=== PATIENT | female | born 1995 | race Caucasian/White ===

== ENCOUNTER 2020-01-11 17:22 | Outpatient (CLI) | payer MEDICAID ==
--- NOTE | 2020-01-11 20:28 | RADIOLOGY REPORT (SQ) ---
EXAM DESCRIPTION: CLINICAL HISTORY: 24 years Female BPP COMPARISON: None. TECHNIQUE: Transabdominal duplex imaging performed to evaluate the pelvis. FINDINGS: posture and tone was observed. movement and breathing observed. SARAH 19.8 cm. Cervix measures 3.1 cm. Fundal placenta without abruption. Vertex presentation. heart rate 152 bpm. IMPRESSION: Normal biophysical profile 02/22
== END 2020-01-11 19:39 | disposition home or self-care (01) ==
LOC: LC 17:22
PROVIDERS: ATTEND Obstetrics & Gynecology
DX: O40.3XX0 Polyhydramnios, third trimester, not applicable or unspecified (principal); Z3A.35 35 weeks gestation of pregnancy
CPT/HCPCS: 76815

== ENCOUNTER 2020-01-17 15:30 | Outpatient (CLI) | payer MEDICAID ==
--- NOTE | 2020-01-17 16:22 | Non Stress Test Report ---
Non Stress Test Datetime Report Generated by CPN: 01/17/2020 16:21 DEMOGRAPHIC EGA NST: 35.2 INDICATION Indication for Study (NST) Other: sent from office for repeat NST VITAL SIGNS Temperature - NST: 97.9 Pulse - NST: 82 RESP - NST: 16 NBPSYS NST: 118 NBPDIA NST: 59 MONITORING Monitor Explained: Monitor Explained; Test Explained; Patient Verbalized Understanding Time on Monitor: 01/17/2020 15:42 Time off Monitor: 01/17/2020 16:21 NST Duration: 39 NST INTERVENTIONS NST Interventions: None Physician Notified NST: N Prabhakar CNM BABY A: [id number] BABY A Movement : Present (Annotations: Data stored by N on behalf of user) Contraction Frequency : 0 FHR Baseline : 135 Accelerations : 15X15 Decelerations : None Variability : Moderate 6-25bpm NST Review: Meets Criteria for Reactive NST NST Review and Verified By : Doreen Malik RN NST Results: Reactive NST REPORT Report Trigger: Send Report
== END 2020-01-17 16:23 | disposition home or self-care (01) ==
LOC: LC 15:30
PROVIDERS: ATTEND Obstetrics & Gynecology Gynecology
DX: O24.419 Gestational diabetes mellitus in pregnancy, unspecified control (principal); Z3A.35 35 weeks gestation of pregnancy
CPT/HCPCS: 59025

== ENCOUNTER 2020-01-22 16:08 | Inpatient (IN) | payer MEDICAID ==
[2020-01-22 17:06] LABS: APPEARANCE,URINE SLIGHTLY-CLOUDY; BILIRUBIN,URINE NEGATIVE (NEGATIVE); COLOR,URINE YELLOW; GLUCOSE, URINE NEGATIVE (NEGATIVE); KETONES,URINE NEGATIVE (NEGATIVE); LEUKOCYTE ESTERASE,URINE NEGATIVE (NEGATIVE); NITRITE,URINE NEGATIVE (NEGATIVE); PROTEIN,URINE NEGATIVE (NEGATIVE); URINE SPECIFIC GRAVITY 1.012; UROBILINOGEN,URINE NEGATIVE mg/dL (<2.0)
--- NOTE | 2020-01-22 17:38 | Admission Physical ---
Datetime Report Generated by CPN: 01/22/2020 17:38 CURRENT ADMISSION Chief Complaint: Uterine Contractions Indication for Induction: PROM Admit Impression : , Intrauterine ; No Active Labor; Ruptured Membranes; Induction of Labor Admit Plan: Admit to Unit; Initiate Labor Protocol ALLERGIES Medication Allergies: No Medication Allergies: No Known Allergies (01/22/2020) Latex: No Latex Allergies OBSTETRICAL HISTORY EDC: 02/19/2020 00:00 : 2 Para: 0 Term: 0 : 0 SAB: 0 IAB: 0 Ectopic: 1 Livin Cesareans: 0 VBACs: 0 Multiple Births: 0 Gestational Diabetes: Yes Rh Sensitization: No Incompetent Cervix: No ROSS: No Infertility: No ART Treatment: No Uterine Anomaly: No IUGR: No Hx Previous C/S: No Macrosomia: No Hx Loss/Stillborn: No PIH: No Hx : No Placenta Previa/Abruption: No Depression/PP Depression: No PTL/PROM: Yes Post Hemorrhage: No Current Procedures: Ultrasound Obstetrical History Comments: G1: 2018 ectopic G2: current SEE RECORDS Alcohol: No Marijuana : No Cocaine: No Other Illicit Drugs: No Cigarettes: Never Smoker. [id number] MEDICAL HISTORY Diabetes: No Diabetes Type: Gestational Diabetes Blood Transfusion: No Pulmonary Disease (Asthma, TB): No Breast Disease: No Hypertension: No Lead Sql Developer Surgery: No Heart Disease: No Hosp/Surgery: No Autoimmune Disorder: No Anesthetic Complications: No Kidney Disease: No Abnormal Pap Smear: No Neuro/Epilepsy: No Psychiatric Disorders: Yes Other Medical Diseases: No Hepatitis/Liver Disease: No Significant Family History: No Varicosities/Phlebitis: No Trauma/Violence : No Thyroid Dysfunction: No Medical History Comments: depression, GDM, gestational thrombocytopenia INFECTIOUS HISTORY Gonorrhea: No Genital Herpes: No Chlamydia: No Tuberculosis: No Syphilis: No Hepatitis: No HIV/AIDS Exposure: No Rash or Viral Illness: No HPV: No PHYSICAL EXAM General: Normal HEENT: Normal Neurologic: Normal Thyroid: Normal Heart: Normal Lungs: Normal Breast: Normal Back: Normal Abdomen: Normal Genitourinary Exam: Normal Extremities: Normal DTRs: Normal Pelvic Type: Adequate Vital Signs: Reviewed; Within Normal Limits VAGINAL EXAM Dilatation: 2 Effacement: 50 Station: -2 MEMBRANES Membranes: Ruptured Amniotic Fluid Color: Clear FETUS A EGA: 36.0 Monitoring: External US FHR- Baseline: 150 Variability: Moderate 6-25bpm Accelerations: 15X15 Decelerations: None FHR Category: Category I Estimated Weight (gm): 2900 Presentation: Vertex Admit Comment: Actiprom +. Pt unsure of when she began leaking. A2DM on glyburide 2.5 mg q daily. Will give single dose of ACS and proceed with labor induction. PLANS FOR LABOR AND DELIVERY Labor and Delivery: None Feeding Preference: Formula Benefit of Breast Feed Discussed: Yes Circumcision: Yes INFORMED CONSENT Signature: with User ID: [email or web address]
[2020-01-22] MEDS ORDERED: RINGERS SOLUTION,LACTATED 1,000 ML IV PRN (17:39)
[2020-01-22] MEDS ORDERED: PENICILLIN G POTASSIUM 5,000,000 UNIT in DEXTROSE 5%-WATER 100 ML IV ONE (17:39)
[2020-01-22 17:40] LABS: URINE AMPHETAMINES SCREEN NEGATIVE; URINE BARBITURATES SCREEN NEGATIVE; URINE BENZODIAZEPINES SCREEN NEGATIVE; URINE COCAINE SCREEN NEGATIVE; URINE MARIJUANA (THC) SCREEN NEGATIVE; URINE METHADONE SCREEN NEGATIVE; URINE PHENCYCLIDINE SCREEN NEGATIVE
[2020-01-22] MEDS ORDERED: PENICILLIN G-K 5 MILLION UNIT VIAL ONE (17:40)
[2020-01-22] MEDS ORDERED: BETAMET ACET/BETAMET NA INJ 6 MG/1 ML ONE (17:40)
[2020-01-22] MEDS ORDERED: BETAMET ACET/BETAMET NA INJ 6 MG/1 ML IM ONE (17:41)
[2020-01-22 18:20] LABS: HEMATOCRIT 35.2 % (36.0-47.0); HEMOGLOBIN 12.3 g/dL (12.0-15.5); MEAN CORPUSCULAR HEMOGLOBIN 30.3 pg (27.0-33.4); MEAN CORPUSCULAR VOLUME 87 fl (80-97); PLATELET COUNT 103 10^3/uL (150-450); RED BLOOD COUNT 4.06 10^6/uL (3.72-5.28); RED CELL DISTRIBUTION WIDTH 13.2 % (11.5-14.0); WHITE BLOOD COUNT 8.3 10^3/uL (4.0-10.5)
[2020-01-22 19:59] LABS: CHLAM PCR NOT DETECTED (NOT DETECT)
[2020-01-22] MEDS ORDERED: SERTRALINE HCL 50 MG TABLET PO SCH (20:00)
[2020-01-22] MEDS ORDERED: GLYBURIDE 2.5 MG TABLET PO SCH (20:00)
[2020-01-22] MEDS ORDERED: SERTRALINE HCL 50 MG TABLET ONE ×2 (20:16→22:08)
[2020-01-22] MEDS ORDERED: GLYBURIDE 5 MG TABLET ONE (20:16)
[2020-01-22] MEDS: SERTRALINE HCL 50 MG TABLET PO SCH (22:13)
[2020-01-22] MEDS: PENICILLIN G POTASSIUM 2,500,000 UNIT in DEXTROSE 5%-WATER 50 ML IV SCH (22:13)
[2020-01-23] MEDS ORDERED: DINOPROSTONE 10 MG VAGINAL INSERT.SR PV PRN (00:27)
[2020-01-23] MEDS ORDERED: DINOPROSTONE 10 MG VAGINAL INSERT.SR ONE ×2 (00:33→01:45)
[2020-01-23] MEDS: PENICILLIN G POTASSIUM 2,500,000 UNIT in DEXTROSE 5%-WATER 50 ML IV SCH ×5 (01:47→21:58)
[2020-01-23] MEDS ORDERED: OXYTOCIN/0.9 % SODIUM CHLORIDE 30 UNIT/500 ML RTUINJ IV PRN (08:19)
[2020-01-23 09:23] LABS: ABSOLUTE LYMPHOCYTES (AUTO) 1.3 10^3/uL (0.5-4.7); ABSOLUTE MONOCYTES (AUTO) 0.4 10^3/uL (0.1-1.4); ABSOLUTE NEUT (AUTO) 9.3 10^3/uL (1.7-8.2); BASOPHILS % (AUTO) 0.2 % (0-2); HEMATOCRIT 37.1 % (36.0-47.0); HEMOGLOBIN 12.6 g/dL (12.0-15.5); LYMPHOCYTES % (AUTO) 11.5 % (13-45); MEAN CORPUSCULAR HEMOGLOBIN 29.8 pg (27.0-33.4); MEAN CORPUSCULAR HGB CONC 33.9 g/dL (32.0-36.0); MEAN CORPUSCULAR VOLUME 88 fl (80-97); MONOCYTES % (AUTO) 3.6 % (3-13); PLATELET COUNT 111 10^3/uL (150-450); RED BLOOD COUNT 4.22 10^6/uL (3.72-5.28); RED CELL DISTRIBUTION WIDTH 13.5 % (11.5-14.0); SEGMENTED NEUTROPHILS % (AUTO) 84.7 % (42-78); TOTAL CELLS COUNTED % (AUTO) 100 %
[2020-01-23] MEDS ORDERED: PENICILLIN G-K 5 MILLION UNIT VIAL ONE ×2 (09:23→14:11)
[2020-01-23] MEDS ORDERED: OXYTOCIN 10 UNIT/ML VIAL ONE (09:42)
[2020-01-23] MEDS ORDERED: MISOPROSTOL 0.2 MG TABLET ONE (09:42)
[2020-01-23] MEDS ORDERED: OXYTOCIN/0.9 % SODIUM CHLORIDE 30 UNIT/500 ML RTUINJ ONE (09:42)
[2020-01-23] MEDS ORDERED: LIDOCAINE 1% INJ-PF (10 MG/ML) 30 ML SDV ONE (09:42)
--- NOTE | 2020-01-23 14:06 | PDOC PROGRESS REPORT ---
Subjective Progress Note for:: 01/23/20 Subjective:: Doing well. Resting quietly No f/c Reason For Visit: Physical Exam - Physical Exam Vital Signs: Intake & Output 01/22/20 01/23/20 01/24/20 06:59 06:59 06:59 Weight 119.3 kg General appearance: PRESENT: no acute distress, cooperative Respiratory exam: PRESENT: clear to auscultation mike Cardiovascular exam: PRESENT: RRR, +S1, +S2 GI/Abdominal exam: PRESENT: soft Extremities exam: PRESENT: full ROM. ABSENT: calf tenderness, clubbing, pedal edema Psychiatric exam: PRESENT: appropriate affect, normal mood. ABSENT: homicidal ideation, suicidal ideation Skin exam: PRESENT: dry, intact, warm. ABSENT: cyanosis, rash - Obstetrical Exam External Genitalia: normal Vagina: normal Dilation (cm): 2 Effacement (%): 50 Station: -2 Result Laboratory Results: 01/23/20 09:07 01/22/20 01/22/20 01/22/20 16:45 18:06 18:06 WBC 8.3 RBC 4.06 Hgb 12.3 Hct 35.2 L MCV 87 MCH 30.3 MCHC 35.0 RDW 13.2 Plt Count 103 L Seg Neutrophils % Urine Color YELLOW Urine Appearance SLIGHTLY-CLOUDY Urine pH 6.0 Ur Specific [place] 1.012 Urine Protein NEGATIVE Urine Glucose (UA) NEGATIVE Urine Ketones NEGATIVE Urine Blood NEGATIVE Urine Nitrite NEGATIVE Ur Leukocyte Esterase NEGATIVE Urine WBC (Auto) 3 Urine RBC (Auto) 1 Blood Type A POSITIVE Antibody Screen NEGATIVE 01/23/20 09:07 WBC 11.0 H RBC 4.22 Hgb 12.6 Hct 37.1 MCV 88 MCH 29.8 MCHC 33.9 RDW 13.5 Plt Count 111 L Seg Neutrophils % 84.7 H Urine Color Urine Appearance Urine pH Ur Specific [place] Urine Protein Urine Glucose (UA) Urine Ketones Urine Blood Urine Nitrite Ur Leukocyte Esterase Urine WBC (Auto) Urine RBC (Auto) Blood Type Antibody Screen Assessment & Plan - Time Time Spent with patient: Less than 15 minutes - Plan Summary Plan Summary: 24 yo at approx 36 wks EGA s/p SROM confirmed by actim prom. She got steriods and antibiotics prior to IOL Patient is comfortable currently but is having some contractions During assessment of cervix which was 2/50/-2 , clear fluid was noted coming from vaginal vault. Hx of one prior GBS pos-continue PCN Anticipate
[2020-01-23] MEDS ORDERED: FENTANYL/BUPIVACAINE/NS/PF 300 MCG/150 ML RTUINJ EPI ONE (15:43)
[2020-01-23] MEDS ORDERED: EPHEDRINE SULFATE INJ 50 MG/1 ML AMPULE ONE (15:43)
[2020-01-23] MEDS ORDERED: BUPIVACAINE HCL 0.25 % INJ/PF (2.5 MG/1 ML) 30 ML VIAL ONE (15:44)
[2020-01-23] MEDS ORDERED: BETAMET ACET/BETAMET NA INJ 6 MG/1 ML IM ONE (18:59)
[2020-01-23] MEDS ORDERED: BETAMET ACET/BETAMET NA INJ 6 MG/1 ML ONE (19:03)
[2020-01-23] MEDS ORDERED: SERTRALINE HCL 50 MG TABLET ONE (21:52)
[2020-01-23] MEDS ORDERED: GLYBURIDE 5 MG TABLET ONE (21:52)
[2020-01-23] MEDS: SERTRALINE HCL 50 MG TABLET PO SCH (21:59)
[2020-01-23] MEDS ORDERED: ONDANSETRON HCL INJ/PF 4 MG/2 ML SDV IV ONE (23:27)
[2020-01-23] MEDS ORDERED: ONDANSETRON HCL INJ/PF 4 MG/2 ML SDV ONE (23:28)
[2020-01-24] MEDS ORDERED: DIPH/PERTUSS(ACELL)/TETANUS VAC/PF 0.5 ML SYR (>=10YO) IM PRN (03:30)
[2020-01-24] MEDS ORDERED: ACETAMINOPHEN WITH CODEINE #3 TABLET PO PRN ×2 (03:30)
[2020-01-24] MEDS ORDERED: PROMETHAZINE HCL INJ 25 MG/1 ML VIAL IV PRN (03:30)
[2020-01-24] MEDS ORDERED: DIPHENHYDRAMINE HCL 25 MG CAPSULE PO PRN (03:30)
[2020-01-24] MEDS ORDERED: DIBUCAINE 1% OINTMENT 28 GM TP PRN (03:30)
[2020-01-24] MEDS ORDERED: PROMETHAZINE HCL 25 MG SUPP.RECT PR PRN (03:30)
[2020-01-24] MEDS ORDERED: PSEUDOEPHEDRINE HCL 30 MG TABLET PO PRN (03:30)
[2020-01-24] MEDS ORDERED: GLYCERIN/WITCH HAZEL LEAF 1 EACH MED..WIPE TP PRN (03:30)
[2020-01-24] MEDS ORDERED: MAGNESIUM HYDROXIDE SUSP 30 ML UDCUP PO PRN (03:30)
[2020-01-24] MEDS ORDERED: PROMETHAZINE HCL 25 MG TABLET PO PRN (03:30)
[2020-01-24] MEDS ORDERED: MEASLES,MUMPS&RUBELLA VACC/PF 0.5 ML VIAL SUBCUT PRN (03:30)
[2020-01-24] MEDS ORDERED: BENZOCAINE/MENTHOL AEROSOL SPRAY 56 ML TOP PRN (03:30)
[2020-01-24] MEDS ORDERED: ACETAMINOPHEN 650 MG SUPP.RECT PR PRN (03:30)
[2020-01-24] MEDS ORDERED: OXYTOCIN/0.9 % SODIUM CHLORIDE 30 UNIT/500 ML RTUINJ IV PRN (03:30)
[2020-01-24] MEDS ORDERED: ZOLPIDEM TARTRATE 5 MG TABLET PO PRN (03:30)
[2020-01-24] MEDS ORDERED: NA PHOS,M-B/NA PHOS,DI-BA (ADULT) 133 ML ENEMA PR PRN (03:30)
[2020-01-24] MEDS ORDERED: IBUPROFEN 800 MG TABLET PO ONE (04:00)
--- NOTE | 2020-01-24 04:25 | Delivery Summary ---
Del Sum A-C Datetime Report Generated by CPN: 01/24/2020 04:25 DELIVERY PERSONNEL DELIVERY PERSONNEL: [id number] Delivery Doctor:: Nereida Klein MD Labor and Delivery Nurse:: Vidhya Michael RNmac artist Nurse:: Renée Molina RN Nursery Nurse:: Edith Stephens RN Nursery Nurse:: Carolina Brizuela RN Hosiery Repairer/DEMONSTRATOR KNITTING: Antionette Riley Additional Personnel: : Patsy Allen RN MATERNAL INFORMATION Delivery Anesthesia: Epidural Medications After Delivery: Pitocin 30 Units in 500ml NS/D5W Delivery QBL: 400 Maternal Complications: Premature Rupture of Membranes LABOR SUMMARY EDC: 02/19/2020 00:00 No. Babies in Womb: 1 Attempted: No Labor Anesthesia: Epidural LABOR INFORMATION Reason for Induction: Premature Rupture of Membranes Onset of Labor: 01/23/2020 17:43 Complete Dilatation: 01/24/2020 02:02 Cervical Ripening Agents: Cervidil Oxytocin: Augmentation Group B Beta Strep: Unknown Antibiotics # of Doses: 8 Antibiotics Time of Last Dose: 2199 Name of Antibiotic Given: Penicillin Steroids Given: Full Course; < 24 Hours before Delivery Reason Steroids Not Administered: Indication; Imminent Delivery MEMBRANES Membranes Rupture Method: Artificial Rupture of Membranes: 01/20/2020 08:00 Length of Rupture (hr): 91.03 Amniotic Fluid Color: Clear Amniotic Fluid Amount: Scant Amniotic Fluid Odor: Normal STAGES OF LABOR Stage 1 hr: 8 Stage 1 min: 19 Stage 2 hr: 1 Stage 2 min: 0 Stage 3 hr: 0 Stage 3 min: 15 Total Time in Labor hr: 9 Total Time in Labor min: 34 VAGINAL DELIVERY Episiotomy: None Laceration #1: Perineal; Periurethral Laceration Extension #1: First Degree Laceration Repair: Yes Sponge Count Correct: Yes CSECTION DELIVERY Primary Indication: N/A Secondary Indication: N/A CSection Incidence: N/A Labor: N/A Elective: N/A CSection Incision: N/A BABY A INFORMATION Delivery Date/Time: 01/24/2020 03:02 Method of Delivery: Vaginal Nurse Controlled Delivery: No Born in Route : No : N/A Forceps: N/A Vacuum Extraction: N/A Shoulder Dystocia : No PRESENTATION/POSITION BABY A Presentation: Cephalic Cephalic Presentation: Vertex Vertex Position: Right Occipital Anterior Breech Presentation: N/A PLACENTA INFORMATION BABY A Placenta Delivery Time : 01/24/2020 03:17 Placenta Method of Delivery: Spontaneous Placenta Status: Delivered SCORES BABY A Heart Rate 1 min: >100 bpm Resp Effort 1 min: Good Cry Reflex Irritability 1 min: Cough or Sneeze or Pulls Away Muscle Tone 1 min: Active Motion Color 1 min: Body [place], Extremities Blue SCORE 1 MIN: 9 Heart Rate 5 min: >100 bpm Resp Effort 5 min: Good Cry Reflex Irritability 5 min: Cough or Sneeze or Pulls Away Muscle Tone 5 min: Active Motion Color 5 min: Body [place], Extremities Blue SCORE 5 MIN: 9 INFANT INFORMATION BABY A Gestational Age at Delivery: 36.2 Gestational Status: Late - 34- 36.6 Weeks Outcome : Liveborn Condition : Stable Infant Sex: Male IDENTIFICATION BABY A Verification Date/Time: 01/24/2020 03:36 ID Band Number: [id number] Mother's Name Verified: Yes Infant RN Verifying Infant: , RN and GreciaAnthonySebastian, RN WEIGHT/LENGTH BABY A Infant Birthweight (gm): 2750 Infant Weight (lb): 6 Weight (oz): 1 Length (in): 19.00 Infant Length (cm): 48.26 CORD INFORMATION BABY A No. Cord Vessels: 3 Nuchal Cord : N/A Cord Blood Taken: Yes-For Storage (Mom's Blood type +) Infant Suction: Mouth ASSESSMENT BABY A Skin to Skin: Yes Skin to Skin Time (min): 30 BABY B INFORMATION : N/A
[2020-01-24] MEDS: PENICILLIN G POTASSIUM 2,500,000 UNIT in DEXTROSE 5%-WATER 50 ML IV SCH ×3 (04:42→08:23)
[2020-01-24] MEDS ORDERED: IBUPROFEN 800 MG TABLET ONE (05:01)
--- NOTE | 2020-01-24 09:43 | PDOC PROGRESS REPORT ---
Subjective-OB Progress Note for:: 01/24/20 Subjective: Doing well, sleeping, hsb at BS, OOB without problems, light bleeding Physical Exam (OB) Vital Signs: Temp Pulse Resp BP Pulse Ox 98.1 F 70 17 106/59 L 100 01/24/20 08:04 01/24/20 08:04 01/24/20 08:04 01/24/20 08:04 01/24/20 08:04 Intake & Output 01/23/20 01/24/20 01/25/20 06:59 06:59 06:59 Intake Total 1000 Balance 1000 Weight 119.3 kg - PIH/Pre-Eclampsia Clonus: Negative Headache: Absent Epigastric Pain: No Visual Changes: No - Lochia Lochia Amount: Small 10-25 ml Lochia Color: Rubra/Red - Abdomen Description: Firm Hernia Present: No Fundal Description: Firm Fundal Height: u/u - u/2 Objective-Diagnostic Laboratory: 01/23/20 09:07 Assessment and Plan(PN) - Assessment and Plan (1) Gestational diabetes Qualifiers: Gestational diabetes mellitus control: oral hypoglycemic-controlled Is this a current diagnosis for this admission?: Yes (2) Depression Qualifiers: Depression Type: unspecified Qualified Code(s): F32.9 - Major depressive disorder, single episode, unspecified Is this a current diagnosis for this admission?: Yes (3) Vaginal delivery Is this a current diagnosis for this admission?: Yes (4) PROM (premature rupture of membranes) Qualifiers: PROM onset of labor timing: onset of labor within 24 hours of rupture PROM gestational age: -third trimester Qualified Code(s): O42.013 - premature rupture of membranes, onset of labor within 24 hours of rupture, third trimester Is this a current diagnosis for this admission?: Yes - Time Spent with Patient Time with patient: Less than 15 minutes Medications reviewed and adjusted accordingly: Yes - Disposition Anticipated Discharge: Home Within: within 48 hours
[2020-01-24] MEDS: FAMOTIDINE 20 MG TABLET PO SCH ×2 (10:29→21:42)
[2020-01-24] MEDS: DOCUSATE SODIUM 100 MG CAPSULE PO SCH ×2 (10:29→18:39)
[2020-01-24] MEDS: PRENATAL VITAMIN W DHA CAPSULE PO SCH (10:29)
[2020-01-24] MEDS: SENNOSIDES/DOCUSATE 8.6-50 MG 1 EACH TABLET PO SCH (10:29)
[2020-01-24] MEDS: FERROUS SULFATE 325 MG TABLET PO SCH ×2 (10:29→18:39)
[2020-01-24] MEDS: IBUPROFEN 800 MG TABLET PO SCH ×2 (14:33→21:42)
[2020-01-24] MEDS: SERTRALINE HCL 50 MG TABLET PO SCH (22:18)
[2020-01-25] MEDS: IBUPROFEN 800 MG TABLET PO SCH ×3 (05:17→21:58)
[2020-01-25 06:48] LABS: HEMATOCRIT 23.6 % (36.0-47.0); MEAN CORPUSCULAR HEMOGLOBIN 30.7 pg (27.0-33.4); MEAN CORPUSCULAR HGB CONC 34.8 g/dL (32.0-36.0); MEAN CORPUSCULAR VOLUME 88 fl (80-97); RED BLOOD COUNT 2.68 10^6/uL (3.72-5.28); RED CELL DISTRIBUTION WIDTH 13.5 % (11.5-14.0); WHITE BLOOD COUNT 9.8 10^3/uL (4.0-10.5)
[2020-01-25 07:10] LABS: PLATELET COUNT 96 10^3/uL (150-450)
[2020-01-25 07:11] LABS: HEMOGLOBIN 8.2 g/dL (12.0-15.5)
[2020-01-25] MEDS: FERROUS SULFATE 325 MG TABLET PO SCH ×2 (09:35→17:24)
[2020-01-25] MEDS: PRENATAL VITAMIN W DHA CAPSULE PO SCH (09:35)
[2020-01-25] MEDS: FAMOTIDINE 20 MG TABLET PO SCH ×2 (09:35→21:58)
[2020-01-25] MEDS: DOCUSATE SODIUM 100 MG CAPSULE PO SCH ×2 (09:35→17:24)
[2020-01-25] MEDS: SENNOSIDES/DOCUSATE 8.6-50 MG 1 EACH TABLET PO SCH (09:35)
--- NOTE | 2020-01-25 10:55 | PDOC PROGRESS REPORT ---
Subjective-OB Progress Note for:: 01/25/20 Subjective: Pt doing well, no concerns. Reports light bleeding, reg diet, and voiding without difficulty. Physical Exam (OB) Vital Signs: Temp Pulse Resp BP Pulse Ox 98.8 F 90 18 139/79 H 98 01/24/20 20:24 01/24/20 20:24 01/24/20 20:24 01/24/20 20:24 01/24/20 20:24 Intake & Output 01/24/20 01/25/20 01/26/20 06:59 06:59 06:59 Intake Total 1000 400 Output Total 1800 Balance -800 400 - Lochia Lochia Amount: Scant < 10 ml Lochia Color: Serosa/Brown - Abdomen Description: Soft Hernia Present: No Fundal Description: Firm Fundal Height: u/u - u/2 Objective-Diagnostic Laboratory: 01/25/20 06:24 01/25/20 06:24 WBC 9.8 RBC 2.68 L Hgb 8.2 L D Hct 23.6 L MCV 88 MCH 30.7 MCHC 34.8 RDW 13.5 Plt Count 96 L 01/22/20 18:00 Vaginal/Anorectal Group B Streptococcus Culture - Final Group B Beta Streptococcus Normal Vaginal Tammie Assessment and Plan(PN) - Assessment and Plan (1) Depression Qualifiers: Depression Type: unspecified Qualified Code(s): F32.9 - Major depressive disorder, single episode, unspecified Is this a current diagnosis for this admission?: Yes (2) Gestational diabetes Qualifiers: Gestational diabetes mellitus control: oral hypoglycemic-controlled Is this a current diagnosis for this admission?: Yes (3) PROM (premature rupture of membranes) Qualifiers: PROM onset of labor timing: onset of labor within 24 hours of rupture PROM gestational age: -third trimester Qualified Code(s): O42.013 - premature rupture of membranes, onset of labor within 24 hours of rupture, third trimester Is this a current diagnosis for this admission?: Yes (4) Vaginal delivery Is this a current diagnosis for this admission?: Yes - Time Spent with Patient Time with patient: Less than 15 minutes Medications reviewed and adjusted accordingly: Yes - Disposition Anticipated Discharge: Home Within: within 24 hours
--- NOTE | 2020-01-25 10:58 | PDOC DISCHARGE SUMMARY ---
Impression - Admit/DC Date/PCP Admission Date/Primary Care Provider: 01/22/20 17:32 ANNIE DAVIDSON MD Discharge Date: 01/26/20 - Discharge Diagnosis (1) Depression Is this a current diagnosis for this admission?: Yes (2) Gestational diabetes Is this a current diagnosis for this admission?: Yes (3) PROM (premature rupture of membranes) Is this a current diagnosis for this admission?: Yes (4) Vaginal delivery Is this a current diagnosis for this admission?: Yes - Additional Information Resuscitation Status: Full Code Discharge Diet: Regular Discharge Activity: Balance Activity w/Rest, No Lifting Over 10 Pounds, No Lifting/Push/Pulling, Pelvic Rest, Slowly Increase Activity, No tub bath Referrals: ANNIE DAVIDSON MD [Primary Care Provider] - Home Medications: No122/Iron/Folic Acid [ Multi Tablet] 1 tab PO DAILY 01/11/20 Sertraline HCl [Zoloft 50 mg Tablet] 50 mg PO DAILY 01/11/20 Glyburide [Diabeta 2.5 mg Tablet] 2.5 mg PO DAILY 01/22/20 HPI Reason(s) for Admission: PROM Procedures: NST Intrapartum Procedure(s): Spontaneous Vaginal Delivery Complication(s): Laceration-Periurethral Laceration-Degree: 1st Results Laboratory Results: WBC 9.8 10^3/uL (4.0-10.5) 01/25/20 06:24 RBC 2.68 10^6/uL (3.72-5.28) L 01/25/20 06:24 Hgb 8.2 g/dL (12.0-15.5) L D 01/25/20 06:24 Hct 23.6 % (36.0-47.0) L 01/25/20 06:24 MCV 88 fl (80-97) 01/25/20 06:24 MCH 30.7 pg (27.0-33.4) 01/25/20 06:24 MCHC 34.8 g/dL (32.0-36.0) 01/25/20 06:24 RDW 13.5 % (11.5-14.0) 01/25/20 06:24 Plt Count 96 10^3/uL (150-450) L 01/25/20 06:24 Lymph % (Auto) 11.5 % (13-45) L 01/23/20 09:07 [place] % (Auto) 3.6 % (3-13) 01/23/20 09:07 Eos % (Auto) 0.0 % (0-6) 01/23/20 09:07 Baso % (Auto) 0.2 % (0-2) 01/23/20 09:07 Absolute Neuts (auto) 9.3 10^3/uL (1.7-8.2) H 01/23/20 09:07 Absolute Lymphs (auto) 1.3 10^3/uL (0.5-4.7) 01/23/20 09:07 Absolute Monos (auto) 0.4 10^3/uL (0.1-1.4) 01/23/20 09:07 Absolute Eos (auto) 0.0 10^3/uL (0.0-0.6) 01/23/20 09:07 Absolute Basos (auto) 0.0 10^3/uL (0.0-0.2) 01/23/20 09:07 Seg Neutrophils % 84.7 % (42-78) H 01/23/20 09:07 POC Glucose 75 mg/dL (70-110) 01/23/20 21:56 Urine Color YELLOW 01/22/20 16:45 Urine Appearance SLIGHTLY-CLOUDY 01/22/20 16:45 Urine pH 6.0 (5.0-9.0) 01/22/20 16:45 Ur Specific [place] 1.012 01/22/20 16:45 Urine Protein NEGATIVE mg/dL (NEGATIVE) 01/22/20 16:45 Urine Glucose (UA) NEGATIVE mg/dL (NEGATIVE) 01/22/20 16:45 Urine Ketones NEGATIVE mg/dL (NEGATIVE) 01/22/20 16:45 Urine Blood NEGATIVE (NEGATIVE) 01/22/20 16:45 Urine Nitrite NEGATIVE (NEGATIVE) 01/22/20 16:45 Urine Bilirubin NEGATIVE (NEGATIVE) 01/22/20 16:45 Urine Urobilinogen NEGATIVE mg/dL (<2.0) 01/22/20 16:45 Ur Leukocyte Esterase NEGATIVE (NEGATIVE) 01/22/20 16:45 Urine WBC (Auto) 3 /HPF 01/22/20 16:45 Urine RBC (Auto) 1 /HPF 01/22/20 16:45 Urine Bacteria (Auto) TRACE /HPF 01/22/20 16:45 Squamous Epi Cells Auto 9 /HPF 01/22/20 16:45 Urine Mucus (Auto) RARE /LPF 01/22/20 16:45 Urine Ascorbic Acid NEGATIVE (NEGATIVE) 01/22/20 16:45 Membranes Rupture POSITIVE (NEGATIVE) H 01/22/20 16:45 Urine Opiates Screen NEGATIVE 01/22/20 16:45 Urine Methadone Screen NEGATIVE 01/22/20 16:45 Ur Barbiturates Screen NEGATIVE 01/22/20 16:45 Ur Phencyclidine Scrn NEGATIVE 01/22/20 16:45 Ur Amphetamines Screen NEGATIVE 01/22/20 16:45 U Benzodiazepines Scrn NEGATIVE 01/22/20 16:45 Urine Cocaine Screen NEGATIVE 01/22/20 16:45 U Marijuana (THC) Screen NEGATIVE 01/22/20 16:45 RPR NONREACTIVE (NONREACTIVE) 01/22/20 18:06 Chlamydia DNA (PCR) NOT DETECTED (NOT DETECT) 01/22/20 18:00 N.gonorrhoeae DNA (PCR) NOT DETECTED (NOT DETECT) 01/22/20 18:00 Blood Type A POSITIVE 01/22/20 18:06 Antibody Screen NEGATIVE 01/22/20 18:06 Plan Plan of Treatment: f/u at [facility] for PPCK Time Spent: Less than 30 Minutes
[2020-01-25] MEDS: SERTRALINE HCL 50 MG TABLET PO SCH (21:58)
[2020-01-26] MEDS: IBUPROFEN 800 MG TABLET PO SCH ×2 (06:08→13:14)
[2020-01-26 07:56] VITALS: BP 112/54
[2020-01-26 07:58] LABS: ABSOLUTE EOSINOPHILS # (AUTO) 0.1 10^3/uL (0.0-0.6); ABSOLUTE LYMPHOCYTES (AUTO) 2.5 10^3/uL (0.5-4.7); ABSOLUTE MONOCYTES (AUTO) 0.6 10^3/uL (0.1-1.4); ABSOLUTE NEUT (AUTO) 5.2 10^3/uL (1.7-8.2); BASOPHILS % (AUTO) 0.3 % (0-2); EOSINOPHILS % (AUTO) 0.7 % (0-6); HEMATOCRIT 25.5 % (36.0-47.0); HEMOGLOBIN 8.8 g/dL (12.0-15.5); LYMPHOCYTES % (AUTO) 29.9 % (13-45); MEAN CORPUSCULAR HEMOGLOBIN 30.6 pg (27.0-33.4); MEAN CORPUSCULAR HGB CONC 34.6 g/dL (32.0-36.0); MEAN CORPUSCULAR VOLUME 89 fl (80-97); MONOCYTES % (AUTO) 6.7 % (3-13); PLATELET COUNT 101 10^3/uL (150-450); RED BLOOD COUNT 2.88 10^6/uL (3.72-5.28); RED CELL DISTRIBUTION WIDTH 13.5 % (11.5-14.0); SEGMENTED NEUTROPHILS % (AUTO) 62.4 % (42-78); TOTAL CELLS COUNTED % (AUTO) 100 %; WHITE BLOOD COUNT 8.3 10^3/uL (4.0-10.5)
[2020-01-26] MEDS: FAMOTIDINE 20 MG TABLET PO SCH (09:37)
[2020-01-26] MEDS: FERROUS SULFATE 325 MG TABLET PO SCH (09:37)
[2020-01-26] MEDS: DOCUSATE SODIUM 100 MG CAPSULE PO SCH (09:37)
[2020-01-26] MEDS: PRENATAL VITAMIN W DHA CAPSULE PO SCH (09:37)
[2020-01-26] MEDS: SENNOSIDES/DOCUSATE 8.6-50 MG 1 EACH TABLET PO SCH (09:37)
== END 2020-01-26 13:23 | disposition home or self-care (01) | DRG 806 ==
LOC: LC 16:08 → LR 17:32 → 2S 01-24 05:37
PROVIDERS: ADMIT Obstetrics & Gynecology; ATTEND Obstetrics & Gynecology
PROC: 10E0XZZ Delivery of Products of Conception, External Approach (ICD-10-PCS; principal; 2020-01-24)
PROC: 0UQMXZZ Repair Vulva, External Approach (ICD-10-PCS; 2020-01-24)
DX: O42.913 Preterm premature rupture of membranes, unspecified as to length of time between rupture and onset of labor, third trimester (principal); O99.12 Other diseases of the blood and blood-forming organs and certain disorders involving the immune mechanism complicating childbirth; Z37.0 Single live birth; O24.425 Gestational diabetes mellitus in childbirth, controlled by oral hypoglycemic drugs; O99.344 Other mental disorders complicating childbirth; F32.9 Major depressive disorder, single episode, unspecified; Z3A.36 36 weeks gestation of pregnancy; O71.82 Other specified trauma to perineum and vulva; D69.59 Other secondary thrombocytopenia
CPT/HCPCS: 1967; 36415; 80307; 81001; 82962; 84112; 85025; 85027; 86592; 86850; 86900; 86901; 87077; 87081; 87491; 87591; 88307; 94760; 96372; C1758; J0702; J2405; J2540; J2590; J3010; J3490; J7060